=== PATIENT | female | born 1985 | race Caucasian/White ===

== ENCOUNTER 2017-12-05 15:58 | Emergency (ER) | payer OTHER, MEDICAID ==
[~2017-12-05] VITALS: Ht 162.6 cm; Wt 60.0 kg
[~2017-12-05 15:58] MED LIST: BAC10T PO; CYCL-394 PO; DICL75TA5 PO; GLYC2TAB21 PO; IBUP-1984 PO; NYST30CR2 TP; ONDA4TAB59 PO
[2017-12-05] MEDS ORDERED: IBUP-1985 PO (19:33)
[2017-12-05] MEDS ORDERED: ketorolac trometh inj. 60 MG/2 ML VIAL IM ONE (19:35)
[2017-12-05 19:49] VITALS: BP 128/85
== END 2017-12-05 19:50 | disposition home or self-care (01) ==
LOC: ER 15:59
DX: M79.1 Myalgia (principal); M54.2 Cervicalgia; M79.651 Pain in right thigh; G35 Multiple sclerosis; Z79.899 Other long term (current) drug therapy; Z88.6 Allergy status to analgesic agent; Z91.040 Latex allergy status; Z88.8 Allergy status to other drugs, medicaments and biological substances; V49.88XA Car occupant (driver) (passenger) injured in other specified transport accidents, initial encounter; Y93.89 Activity, other specified; Y92.828 Other wilderness area as the place of occurrence of the external cause; Y99.9 Unspecified external cause status
CPT/HCPCS: 96372; 99283; J1885